=== PATIENT | male | born 1960 | race Caucasian/White ===

== ENCOUNTER → 2020-05-24 | Outpatient (CLI) | payer OTHER ==
[~2020-05-24] MED LIST: ATORVASTATIN CA20 MG PO; ISOSORBIDE MONO30 MG PO; METOPROLOL SUCC25 MG PO; PROTONIX 40 MG40 M1 PO
== END ==
LOC: HEART CORB 09:46
DX: R07.2 Precordial pain (principal); R06.02 Shortness of breath; I10 Essential (primary) hypertension; E78.5 Hyperlipidemia, unspecified; J44.9 Chronic obstructive pulmonary disease, unspecified; F17.200 Nicotine dependence, unspecified, uncomplicated; K21.9 Gastro-esophageal reflux disease without esophagitis; F41.9 Anxiety disorder, unspecified
CPT/HCPCS: 78452; A9502; J2785

== ENCOUNTER → 2020-06-16 | Outpatient (CLI) | payer OTHER ==
[2020-06-16 14:58] LABS: HEMOGLOBIN 15.2 gm/dl (14.0-17.5); RED BLOOD COUNT 5.04 M/UL (4.20-5.50); WHITE BLOOD COUNT 6.6 K/UL (4.5-11.0)
[2020-06-16 15:53] LABS: BUN/CREATININE RATIO 11 (0-10)
== END ==
LOC: LAB 12:42
PROVIDERS: Internal Medicine Interventional Cardiology
DX: I20.9 Angina pectoris, unspecified (principal); R94.39 Abnormal result of other cardiovascular function study
CPT/HCPCS: 36415; 80048; 85025; 85610; 85730; 93005

== ENCOUNTER → 2020-06-19 | Outpatient (CLI) | payer OTHER | LOC: CATH 06-16 08:00 | DX: I25.118 Atherosclerotic heart disease of native coronary artery with other forms of angina pectoris (principal); I10 Essential (primary) hypertension; F17.210 Nicotine dependence, cigarettes, uncomplicated; Z79.899 Other long term (current) drug therapy | CPT/HCPCS: 93571; 99152; 99153; C1769; C1887; C1894; J0153; J1644; J2250; J3010; J7030; Q9967 ==

== ENCOUNTER 2021-02-11 09:41 | Emergency (ER) | payer OTHER ==
[2021-02-11 11:02] LABS: HEMOGLOBIN 15.6 gm/dl (14.0-17.5); RED BLOOD COUNT 5.14 M/UL (4.20-5.50); WHITE BLOOD COUNT 5.5 K/UL (4.5-11.0)
[2021-02-11 11:34] LABS: BUN/CREATININE RATIO 8 (0-10)
[2021-02-11] MEDS ORDERED: NITROSTAT0.4 MG SL (15:56)
== END 2021-02-11 16:22 | disposition home or self-care (01) ==
LOC: ER1 09:41
PROVIDERS: Family Medicine
DX: R07.89 Other chest pain (principal); I25.10 Atherosclerotic heart disease of native coronary artery without angina pectoris; I11.9 Hypertensive heart disease without heart failure; J44.9 Chronic obstructive pulmonary disease, unspecified; E78.5 Hyperlipidemia, unspecified; F17.200 Nicotine dependence, unspecified, uncomplicated; Z79.82 Long term (current) use of aspirin; Z79.899 Other long term (current) drug therapy
CPT/HCPCS: 71045; 80053; 82550; 82553; 83874; 84484; 85025; 93005; 99285